=== PATIENT | male | born 1990 | race Hispanic/Latino ===

== ENCOUNTER 2023-01-15 17:02 | Emergency (ER) | payer BC ==
[~2023-01-15] VITALS: Ht 152.4 cm; Wt 110.2 kg
[2023-01-15] MEDS ORDERED: HYDROCODONE/APAP 10MG-325MG TAB PO ONE (17:15)
[2023-01-15 17:38] LABS: CLARITY,URINE CLEAR (CLEAR); COLOR,URINE YELLOW (YELLOW); KETONES,URINE NEGATIVE (NEGATIVE); LEUKOCYTE ESTERASE ,URINE NEGATIVE (NEGATIVE); NITRITE,URINE NEGATIVE (NEGATIVE); PROTEIN,URINE DIPSTICK NEGATIVE (NEGATIVE); URINE UROBILINOGEN 0.2 mg/dL (0.2 - 1)
[2023-01-15] MEDS ORDERED: CEFTRIAXONE 500 MG VIAL IM ONE (19:15)
[2023-01-15] MEDS ORDERED: DOXYCYCLINE HYCLATE TABLET 100 MG TAB PO ONE (19:15)
[2023-01-15] MEDS ORDERED: DOXYCYCLINE HY100 MG PO (19:18)
[2023-01-15] MEDS ORDERED: IBUPROFEN600 MG PO (19:18)
[2023-01-15] MEDS ORDERED: LIDOCAINE HCL 1% 2 ML AMP ONE (19:33)
[2023-01-15 19:59] VITALS: O2SAT 98
== END 2023-01-15 20:19 | disposition home or self-care (01) ==
LOC: ER 17:10
DX: N50.811 Right testicular pain (principal); N45.2 Orchitis; E11.9 Type 2 diabetes mellitus without complications; E78.5 Hyperlipidemia, unspecified; G47.30 Sleep apnea, unspecified
CPT/HCPCS: 76870; 81001; 93976; 99284; J0696; J2001